=== PATIENT | female | born 1985 | race Caucasian/White ===

== ENCOUNTER 2017-04-20 10:08 | Emergency (ER) | payer MEDICAID, OTHER ==
[2017-04-20 10:21] VITALS: TEMP 98.2
--- NOTE | 2017-04-20 12:59 | RAD ---
PROCEDURE: Left Ankle Radiographs. HISTORY: r/o fx COMPARISON: 12/29/2014 FINDINGS: BONES: Normal. No fracture. JOINTS: Normal. No osteoarthritis. Ankle mortise maintained. Talar dome intact SOFT TISSUES: Normal. OTHER FINDINGS: None. IMPRESSION: Normal left ankle radiographs.
[2017-04-20 13:37] VITALS: BP 114/87; PULSE 89; RESP 16; O2SAT 100
--- NOTE | 2017-04-20 13:55 | ED PDOC ---
Arrival/HPI - General Chief Complaint: Lower Extremity Problem/Injury Time Seen by Provider: 04/20/17 10:49 Historian: Patient - History of Present Illness Narrative History of Present Illness (Text): 04/20/17 13:53 A 31 year old female, who denies any significant past medical history, presents to the emergency department for left ankle pain. The patient states she is able to walk with no problems and denies any trauma, falls, calf tenderness, or any other complaints at this time. Time/Duration: 24 hours Symptom Onset: Gradual Symptom Course: Unchanged Quality: Aching Context: Home Past Medical History - Provider Review Nursing Documentation Reviewed: Yes - Infectious Disease Hx of Infectious Diseases: None - Tetanus Immunization Tetanus Immunization: Unknown - Past Medical History Past Medical History: No Previous - Cardiac Hx Cardiac Disorders: No - Pulmonary Hx Respiratory Disorders: No - Neurological Hx Neurological Disorder: No - HEENT Hx HEENT Disorder: No - Renal Hx Renal Disorder: No - Endocrine/Metabolic Hx Endocrine Disorders: Yes Hx Diabetes Mellitus Type 2: Yes - Hematological/Oncological Hx Blood Disorders: No - Integumentary Hx Dermatological Disorder: No - Musculoskeletal/Rheumatological Hx Musculoskeletal Disorders: No - Gastrointestinal Hx Gastrointestinal Disorders: No - Genitourinary/Gynecological Hx Genitourinary Disorders: No Other/Comment: polycystic ovary syndrome - Psychiatric Hx Psychophysiologic Disorder: Yes Hx Depression: Yes Hx Substance Use: No - Past Surgical History Past Surgical History: No Previous - Anesthesia Hx Anesthesia: Yes Hx Anesthesia Reactions: No Hx Malignant Hyperthermia: No - Suicidal Assessment Feels Threatened In Home Enviroment: No Family/Social History - Physician Review Nursing Documentation Reviewed: Yes Family/Social History: No Known Family HX Smoking Status: Heavy Smoker > 10 Cigarettes Daily Hx Alcohol Use: No Hx Substance Use: No Allergies/Home Meds Allergies/Adverse Reactions: Allergies No Known Allergies Allergy (Verified 04/20/17 10:18) Home Medications: Home Meds Medication Instructions Recorded Confirmed metFORMIN [glucOPHAGE] 500 mg PO BID 01/06/15 04/20/17 Review of Systems - Physician Review All systems were reviewed & negative as marked: Yes - Review of Systems Constitutional: absent: Fevers Musculoskeletal: Other (left ankle pain ) Neurological: absent: Gait Changes Physical Exam Vital Signs Reviewed: Yes Vital Signs Temp Pulse Resp BP Pulse Ox 04/20/17 13:35 89 16 114/87 100 04/20/17 10:18 98.2 F 99 H 17 112/72 97 Temperature: Afebrile Blood Pressure: Normal Pulse: Tachycardic Respiratory Rate: Normal Appearance: Positive for: Well-Appearing, Non-Toxic, Comfortable Pain Distress: None Mental Status: Positive for: Alert and Oriented X 3 Finger Stick Blood Glucose: 181 - Systems Exam Head: Present: Atraumatic, Normocephalic Pupils: Present: PERRL Extroacular Muscles: Present: EOMI Conjunctiva: Present: Normal Mouth: Present: Moist Mucous Membranes Neck: Present: Normal Range of Motion Respiratory/Chest: Present: Clear to Auscultation, Good Air Exchange. No: Respiratory Distress, Accessory Muscle Use Cardiovascular: Present: Regular Rate and Rhythm, Normal S1, S2. No: Murmurs Abdomen: Present: Normal Bowel Sounds. No: Tenderness, Distention, Peritoneal Signs Back: Present: Normal Inspection Upper Extremity: Present: Normal Inspection. No: Cyanosis, Edema Lower Extremity: Present: Tenderness (lateral aspect of left ankle), Swelling ( lateral aspect of left ankle). No: CALF TENDERNESS Neurological: Present: GCS=15, CN II-XII Intact, Speech Normal Skin: Present: Warm, Dry, Normal Color. No: Rashes Psychiatric: Present: Alert, Oriented x 3, Normal Insight, Normal Concentration Medical Decision Making - RAD Interpretation Radiology Orders: 04/20/17 10:49 ANKLE LEFT 3 VIEWS ROUTINE [RAD] Stat - Medication Orders Current Medication Orders: Discontinued Medications Ibuprofen (Motrin Tab) 600 mg PO STAT STA Stop: 04/20/17 10:50 Last Admin: 04/20/17 11:01 Dose: 600 mg MAR Pain/Vitals Document 04/20/17 11:01 [place] (Rec: 04/20/17 11:02 [place] [id number]) Pain Reassessment Is This A Pain ReAssessment? No Sleep Is patient sleeping during reassessment? No Presence of Pain Presence of Pain Yes Location Left, Right or Bilateral Left Pain Location Body Site Ankle - Scribe Statement The provider has reviewed the documentation as recorded by the Scribe Марина Osborne Provider Scribe Attestation: All medical record entries made by the Scribe were at my direction and personally dictated by me. I have reviewed the chart and agree that the record accurately reflects my personal performance of the history, physical exam, medical decision making, and the department course for this patient. I have also personally directed, reviewed, and agree with the discharge instructions and disposition. Disposition/Present on Arrival - Present on Arrival Any Indicators Present on Arrival: No History of DVT/PE: No History of Uncontrolled Diabetes: No Urinary Catheter: No History of Decub. Ulcer: No History Surgical Site Infection Following: None - Disposition Have Diagnosis and Disposition been Completed?: Yes Diagnosis: Ankle sprain Disposition: HOME/ ROUTINE Disposition Time: 11:50 Condition: GOOD Discharge Instructions (ExitCare): Ankle Sprain (ED), RICE Therapy (ED) Additional Instructions: Thank you for letting us take care of you today. The emergency medical care you received today was directed at your acute symptoms. If you were prescribed any medication, please fill it and take as directed. It may take several days for your symptoms to resolve. Return to the Emergency Department if your symptoms worsen, do not improve, or if you have any other problems. Please contact your doctor or call one of the physicians/clinics you have been referred to that are listed on the Patient Visit Information form that is included in your discharge packet. Bring any paperwork you were given at discharge with you along with any medications you are taking to your follow up visit. Our treatment cannot replace ongoing medical care by a primary care provider (PCP) outside of the emergency department. Thank you for allowing the [facility] team to be part of your care today. Follow up with your doctor in 2-3 days for re-evaluation and further management. Prescriptions: Ibuprofen [Motrin] 600 mg PO Q6 PRN #20 tab PRN Reason: Pain, Moderate (4-7) Referrals: Nicole Serna MD [Primary Care Provider] - Follow up with primary Forms: WORK NOTE
== END 2017-04-20 13:37 | disposition home or self-care (01) ==
LOC: ED 10:08
DX: S93.402A Sprain of unspecified ligament of left ankle, initial encounter (principal); X58.XXXA Exposure to other specified factors, initial encounter; Y92.9 Unspecified place or not applicable

== ENCOUNTER 2018-03-23 15:30 | Emergency (ER) | payer MEDICAID ==
[2018-03-23 15:46] VITALS: BMI 26.5
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
--- NOTE | 2018-03-23 17:47 | CT ---
Date of service: 03/23/2018 PROCEDURE: CT HEAD WITHOUT CONTRAST. HISTORY: headache COMPARISON: None available. TECHNIQUE: Axial computed tomography images were obtained through the head/brain without intravenous contrast. Radiation dose: Total exam DLP = 909.83 mGy-cm. This CT exam was performed using one or more of the following dose reduction techniques: Automated exposure control, adjustment of the mA and/or kV according to patient size, and/or use of iterative reconstruction technique. FINDINGS: HEMORRHAGE: No intracranial hemorrhage. BRAIN: No mass effect or edema. No atrophy or chronic microvascular ischemic changes. VENTRICLES: No hydrocephalus. CALVARIUM: Unremarkable. PARANASAL SINUSES: Mild mucosal thickening of the ethmoid air cells. Mucosal polyp/retention cyst within the right sphenoid sinus. MASTOID AIR CELLS: Unremarkable as visualized. No inflammatory changes. OTHER FINDINGS: None. IMPRESSION: No acute intracranial pathology identified. Mild mucosal thickening of the ethmoid air cells. Mucosal polyp/retention cyst within the right sphenoid sinus.
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
[2018-03-23 18:16] VITALS: BP 126/53; PULSE 85; RESP 20; TEMP 98; O2SAT 99
== END 2018-03-23 19:03 | disposition home or self-care (01) ==
LOC: ED 15:30
DX: S05.11XA Contusion of eyeball and orbital tissues, right eye, initial encounter (principal); S09.90XA Unspecified injury of head, initial encounter; Y04.0XXA Assault by unarmed brawl or fight, initial encounter; E11.9 Type 2 diabetes mellitus without complications; F17.210 Nicotine dependence, cigarettes, uncomplicated

== ENCOUNTER 2018-04-29 18:02 | Emergency (ER) | payer MEDICAID ==
[2018-04-29 18:07] VITALS: BMI 35.6
[2018-04-29 18:12] VITALS: RESP 18; TEMP 98.1
--- NOTE | 2018-04-29 19:26 | ED PDOC ---
Arrival/HPI - General Chief Complaint: Anxiety Time Seen by Provider: 04/29/18 18:19 Historian: Patient - History of Present Illness Narrative History of Present Illness (Text): 04/29/18 19:22 A 32 year old female, whose past medical history includes diabetes, presents to the emergency department complaining of cough, cold, and congestion for the past 2 weeks. Patient reports today she experienced an anxiety attack and felt pre ssure-like chest discomfort. Patient became concerned and decided to come to the ER for evaluation. She mentions starting a new job recently and has been anxious about this. Has not taken anything for the anxiety. Patient denies any fever, chills, shortness of breath, chest pain, bilateral leg pain/swelling, or any other complaints at this time. Denies any recent travel. Also, patient mentions she ran out of her diabetes medication and will be seeing her PMD to receive a refill prescription. PMD: Dr. Nicole Serna Past Medical History - Provider Review Nursing Documentation Reviewed: Yes - Infectious Disease Hx of Infectious Diseases: None - Tetanus Immunization Tetanus Immunization: Unknown - Past Medical History Past Medical History: No Previous - Cardiac Hx Cardiac Disorders: No - Pulmonary Hx Respiratory Disorders: No - Neurological Hx Neurological Disorder: No - HEENT Hx HEENT Disorder: No - Renal Hx Renal Disorder: No - Endocrine/Metabolic Hx Endocrine Disorders: Yes Hx Diabetes Mellitus Type 2: Yes - Hematological/Oncological Hx Blood Disorders: No - Integumentary Hx Dermatological Disorder: No - Musculoskeletal/Rheumatological Hx Musculoskeletal Disorders: No - Gastrointestinal Hx Gastrointestinal Disorders: No - Genitourinary/Gynecological Hx Genitourinary Disorders: No Other/Comment: polycystic ovary syndrome - Psychiatric Hx Psychophysiologic Disorder: Yes Hx Anxiety: Yes Hx Depression: Yes Hx Substance Use: No - Past Surgical History Past Surgical History: No Previous - Anesthesia Hx Anesthesia: Yes Hx Anesthesia Reactions: No Hx Malignant Hyperthermia: No - Suicidal Assessment Feels Threatened In Home Enviroment: No Family/Social History - Physician Review Nursing Documentation Reviewed: Yes Family/Social History: No Known Family HX Smoking Status: Never Smoked Hx Alcohol Use: No Hx Substance Use: No Allergies/Home Meds Allergies/Adverse Reactions: Allergies No Known Allergies Allergy (Verified 04/29/18 18:07) Review of Systems - Physician Review All systems were reviewed & negative as marked: Yes - Review of Systems Constitutional: absent: Fevers, Night Sweats ENT: Sinus Congestion Respiratory: Cough. absent: SOB Cardiovascular: Other (pressure-like chest discomfort). absent: Chest Pain Musculoskeletal: absent: Other (no bilateral leg pain/swelling) Physical Exam Vital Signs Reviewed: Yes Vital Signs Temp Pulse Resp BP Pulse Ox 04/29/18 18:11 98.1 F 106 H 18 142/92 H 99 Temperature: Afebrile Blood Pressure: Normal Pulse: Regular Respiratory Rate: Normal Appearance: Positive for: Well-Appearing, Non-Toxic, Comfortable Pain Distress: None Mental Status: Positive for: Alert and Oriented X 3 Finger Stick Blood Glucose: 154 - Systems Exam Head: Present: Atraumatic, Normocephalic Pupils: Present: PERRL Extroacular Muscles: Present: EOMI Conjunctiva: Present: Normal Mouth: Present: Moist Mucous Membranes Neck: Present: Normal Range of Motion Respiratory/Chest: Present: Clear to Auscultation, Good Air Exchange. No: Respiratory Distress, Accessory Muscle Use Cardiovascular: Present: Regular Rate and Rhythm, Normal S1, S2. No: Murmurs Abdomen: No: Tenderness, Distention, Peritoneal Signs Back: Present: Normal Inspection Upper Extremity: Present: Normal Inspection. No: Cyanosis, Edema Lower Extremity: Present: Normal Inspection. No: Edema Neurological: Present: GCS=15, CN II-XII Intact, Speech Normal Skin: Present: Warm, Dry, Normal Color. No: Rashes Psychiatric: Present: Alert, Oriented x 3, Normal Insight, Normal Concentration, Anxious Medical Decision Making ED Course and Treatment: 04/29/18 19:24 Impression: 32 year old female with cough, cold, congestion. Plan: -- EKG -- Chest X-ray -- Ativan -- Reassess and disposition Progress Notes: cg (-) FS 154 EKG : NSR at 99 bpm, no acute ST changes. CXR : NAD. On reevaluation, patient reports improvement of symptoms, denies any CP, SOB, anxiety, depression. On exam, patient remains awake alert and oriented 3 in no acute distress. Patient is smiling and in good spirits. Results d/w the patient. She states that she feels comfortable going home. Advised to follow up with primary care physician in 1-2 days without fail. Advised to take medication as prescribed. Return to the emergency room at any time for any new or worsening symptoms. Patient states she fully agrees with and understands discharge instructions. States that she agrees with the plan and disposition. Verbalized and repeated discharge instructions and plan. I have given the patient opportunity to ask any additional questions. 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 - Scribe Statement The provider has reviewed the documentation as recorded by the Lauryn Madrigal Provider Scribe Attestation: All medical record entries made by the Scribe were at my direction and personally dictated by me. I have reviewed the chart and agree that the record accurately reflects my personal performance of the history, physical exam, medical decision making, and the department course for this patient. I have also personally directed, reviewed, and agree with the discharge instructions and disposition. Disposition/Present on Arrival - Present on Arrival Any Indicators Present on Arrival: No History of DVT/PE: No History of Uncontrolled Diabetes: No Urinary Catheter: No History of Decub. Ulcer: No History Surgical Site Infection Following: None - Disposition Have Diagnosis and Disposition been Completed?: Yes Diagnosis: Anxiety, Bronchitis Disposition: HOME/ ROUTINE Disposition Time: 20:10 Patient Plan: Discharge Patient Problems: Current Active Problems Problem Status Onset Anxiety Acute Bronchitis Acute Condition: STABLE Discharge Instructions (ExitCare): Anxiety, Adult (DC), Acute Bronchitis Additional Instructions: Thank you for letting us take care of you today. You were treated for anxiety, bronchitis. The emergency medical care you received today was directed at your acute symptoms. If you were prescribed any medication, please fill it and take as directed. It may take several days for your symptoms to resolve. Return to the Emergency Department if your symptoms worsen, do not improve, or if you have any other problems. Please contact your doctor in 2 days for re-evaluation and follow up. Bring any paperwork you were given at discharge with you along with any medications you are taking to your follow up visit. Our treatment cannot replace ongoing medical care by a primary care provider (PCP) outside of the emergency department. Thank you for allowing the [facility] team to be part of your care today. If you had an X-Ray: A Radiologist will review the ED reading if any change in treatment is needed we will contact you. Prescriptions: Albuterol HFA [Ventolin HFA 90 mcg/actuation (8 g)] 2 puff IH [id number] #1 puff ALPRAZolam [Xanax] 0.25 mg PO TID PRN #9 tab PRN Reason: Anxiety Guaifenesin 400 mg PO QID #20 tablet Referrals: Nicole Serna MD [Primary Care Provider] - Follow up with primary Forms: [employer] (Pashto), WORK NOTE
[2018-04-29 20:56] VITALS: BP 137/90; PULSE 90; O2SAT 100
--- NOTE | 2018-04-30 08:31 | RAD ---
Date of service: 04/29/2018 HISTORY: cough COMPARISON: 08/25/2013 TECHNIQUE: Chest PA and lateral FINDINGS: LUNGS: No active pulmonary disease. PLEURA: No significant pleural effusion identified. No pneumothorax apparent. CARDIOVASCULAR: No aortic atherosclerotic calcification present. Normal cardiac size. No pulmonary vascular congestion. OSSEOUS STRUCTURES: No significant abnormalities. VISUALIZED UPPER ABDOMEN: Normal. OTHER FINDINGS: None. IMPRESSION: No active disease. No interval pathology noted.
--- NOTE | 2018-04-30 12:04 | CARD ---
APPROVED REPORT Date of service: 04/29/2018 EKG Measurement Heart [id number] <Conclusion> Normal sinus rhythm Normal Electrocardiogram
== END 2018-04-29 20:53 | disposition home or self-care (01) ==
LOC: ED 18:02
DX: J40 Bronchitis, not specified as acute or chronic (principal); F41.9 Anxiety disorder, unspecified; E11.9 Type 2 diabetes mellitus without complications